=== PATIENT | female | born 1970 | race Caucasian/White ===

== ENCOUNTER 2021-07-01 20:47 | Emergency (ER) | payer SELFPAY ==
[~2021-07-01] VITALS: Ht 162.6 cm; Wt 140.9 kg
[2021-07-01 20:48] VITALS: BP 153/79
[2021-07-01] MEDS ORDERED: PRIL20TA2 PO (20:55)
[2021-07-01] MEDS ORDERED: LISI20TA20 PO (20:55)
[2021-07-01] MEDS ORDERED: CEFU1TAB20 PO (20:55)
[2021-07-01] MEDS ORDERED: LORA-930 PO (20:55)
[2021-07-01] MEDS ORDERED: FURO20TA2 PO (20:55)
== END 2021-07-01 21:25 | disposition left against medical advice (07) ==
LOC: M ED 20:47
DX: Z53.21 Procedure and treatment not carried out due to patient leaving prior to being seen by health care provider (principal)